=== PATIENT | female | born 1930 | race Caucasian/White ===

== ENCOUNTER → 2016-06-19 | Outpatient (CLI) | payer OTHER ==
[2016-06-19 17:28] LABS: BASOPHILS # (AUTO) 0.08 10*3/UL; BASOPHILS % (AUTO) 0.9 % (0-1); HEMATOCRIT 41.5 % (37.0-47.0); HEMOGLOBIN 13.5 g/dL (12.0-16.0); IMM GRAN % (AUTO) 0.3 % (0-5); IMM GRAN# (AUTO) 0.03 10*3/UL; LYMPHOCYTES # (AUTO) 2.08 10*3/uL; LYMPHOCYTES % (AUTO) 22.3 % (10-50); MEAN CORPUSCULAR HEMOGLOBIN 31.3 PG (27-31); MEAN CORPUSCULAR HGB CONC 32.5 g/dL (33-37); MONOCYTES # (AUTO) 0.83 10*3/UL (0.3-0.8); MONOCYTES % (AUTO) 8.9 % (5-15); NEUTROPHILS # (AUTO) 6.03 10*3/UL; NEUTROPHILS % (AUTO) 64.6 % (50-80); RDW COEFFICIENT OF VARIATION 14.8 % (11.5-14.5); RED BLOOD COUNT 4.31 10^6/uL (4.20-5.40); WHITE BLOOD COUNT 9.33 10^3/uL (4.8-10.8)
[2016-06-19 17:37] LABS: PLATELET MORPHOLOGY COMMENT NORMAL MORPHOLOGY (NORM)
[2016-06-19 17:41] LABS: BLOOD UREA NITROGEN 27 mg/dL (7-22); BUN/CREATININE RATIO 20.76 (6-20); CALCIUM 10.3 mg/dL (8.7-10.7); CHLORIDE 108 meq/L (98-112); CREATININE 1.3 mg/dL (0.50-1.20); GLUCOSE 102 mg/dL (78-110); POTASSIUM 5.5 meq/L (3.8-5.2); SODIUM 144 meq/L (135-145)
[2016-06-19 17:43] LABS: HEMOGLOBIN A1C 6.29 % (4.2-6.0); MEAN BLOOD GLUCOSE (CALC) 123.457 mg/dL
[2016-06-19 20:20] LABS: FREE T4 (FREE THYROXINE) 0.87 ng/dL (0.93-1.71)
== END ==
LOC: MOB LAB 16:22
DX: E11.9 Type 2 diabetes mellitus without complications (principal); I10 Essential (primary) hypertension; E55.9 Vitamin D deficiency, unspecified; E03.9 Hypothyroidism, unspecified; L30.8 Other specified dermatitis
CPT/HCPCS: 36415; 80048; 82306; 83036; 84439; 84443; 85025

== ENCOUNTER → 2016-10-16 | Outpatient (CLI) | payer OTHER ==
--- NOTE | 2016-10-16 16:06 | EKG ---
[address] [address] Measurements Intervals [place] Rate: 63 P: 70 ME: 142 QRS: 17 QRSD: 96 T: 69 QT: 395 QTc: 403 Interpretive Statements SINUS RHYTHM WITH SINUS ARRHYTHMIA NONSPECIFIC ST & T-WAVE ABNORMALITY Compared to ECG 08/29/2012 09:16:59 T-wave abnormality still present Electronically Signed On 10-16-16 16:59:52 MDT by Krishna Griffith [email or web address]
[2016-10-16 16:35] LABS: BASOPHILS # (AUTO) 0.05 10*3/UL; BASOPHILS % (AUTO) 0.6 % (0-1); EOSINOPHILS # (AUTO) 0.33 10*3/UL; EOSINOPHILS % (AUTO) 3.8 % (0-8); HEMOGLOBIN 12.1 g/dL (12.0-16.0); MEAN CORPUSCULAR HEMOGLOBIN 30.1 PG (27-31); MEAN CORPUSCULAR HGB CONC 31.8 g/dL (33-37); MEAN CORPUSCULAR VOLUME 94.5 FL (81-99); MEAN PLATELET VOLUME 10.7 FL (7.4-12.2); MONOCYTES # (AUTO) 0.87 10*3/UL (0.3-0.8); MONOCYTES % (AUTO) 9.9 % (5-15); NEUTROPHILS % (AUTO) 66.9 % (50-80); RED BLOOD COUNT 4.02 10^6/uL (4.20-5.40)
[2016-10-16 16:41] LABS: PLATELET MORPHOLOGY COMMENT NORMAL MORPHOLOGY (NORM); RBC MORPHOLOGY COMMENT NORMAL MORPHOLOGY (NORM); WBC MORPHOLOGY COMMENT NORMAL MORPHOLOGY (NORM)
[2016-10-16 16:52] LABS: BLOOD UREA NITROGEN 33 mg/dL (7-22); BUN/CREATININE RATIO 23.57 (6-20); CALCIUM 9.6 mg/dL (8.7-10.7)
[2016-10-16 17:05] LABS: HEMOGLOBIN A1C 6.21 % (4.2-6.0)
== END ==
LOC: MOB LAB 15:48
DX: E11.9 Type 2 diabetes mellitus without complications (principal); E03.9 Hypothyroidism, unspecified; C44.719 Basal cell carcinoma of skin of left lower limb, including hip; E78.5 Hyperlipidemia, unspecified; I10 Essential (primary) hypertension; H91.90 Unspecified hearing loss, unspecified ear; L98.8 Other specified disorders of the skin and subcutaneous tissue
CPT/HCPCS: 36415; 80048; 83036; 84443; 85025; 93005; 93010

== ENCOUNTER 2016-10-24 08:56 | Day surgery (SDC) | payer OTHER ==
[~2016-10-24 08:56] MED LIST: Clindamycin 900mg (Premix) 50 ML IV ONE; LIDOCAINE W/ SODIUM BICARB 0.5 ML SYR ONE; Lactated Ringers 1,000 ML PRIMARY IV ONE
[2016-10-24] MEDS ORDERED: Sodium Chloride 0.9% vial 10 ML ONE (09:16)
[2016-10-24] MEDS ORDERED: MIDAZOLAM 5 MG/1 ML ONE (09:16)
[2016-10-24] MEDS ORDERED: DEXAMETHASONE SOD PHOSPHATE 4 MG/1 ML VIAL ONE (11:34)
[2016-10-24] MEDS ORDERED: BUPivacaine Inj 0.5% PF (5mg/ml) 10ml vial ONE (11:34)
[2016-10-24] MEDS ORDERED: Lidocaine Inj 1% 20 ML ONE (11:34)
[2016-10-24] MEDS ORDERED: HYDROcodone-APAP 5 MG -325 MG TABLET PO PRN (12:27)
[2016-10-24] MEDS ORDERED: NORMAL SALINE 10 ML SYRINGE FLUSH IVP PRN (12:27)
--- NOTE | 2016-10-24 12:46 | GEN.OPNOTE ---
Operative Report Surgeon: Dewayne Shearer DPM Anesthesia Type: Local, MAC Anesthesia Provider: Radha Reynoso CRNA Surgery Date: 10/24/16 Preoperative Diagnosis: 1. Left foot skin lesion, possible squamous cell. L98.9 Postoperative Diagnosis: 1. Left foot skin lesion, possible squamous cell. L98.9 Procedure: 1. Excision of abnormal skin lesion, 5.2 X 2.2 cm area. 2. Skin flap for closure. Estimated Blood Loss (mL): 0 Fluids: 900 mg clindamycin preoperatively. 400 mL's lactated Ringer's. Indications for the Procedure: Chronic skin lesion, which has not responded to conservative measures over the past year. Possible squamous cell or basal cell type carcinoma. Description of Procedure: The patient was brought to the operating room and placed in the supine position. MAC was continued. The foot was prepped and draped in the usual sterile fashion. A timeout was performed. A local block was administered to the left dorsal foot proximally. The foot was then exsanguinated with an elastic Esmarch, after which a pneumatic cuff was inflated about the ankle to 250 mmHg pressure. The area gained for excision of the skin lesion with a minimum of 4 mm margins on either side, was 5.2 cm in length and 2.2 cm in width. The skin incision was carried deep to subcutaneous tissues. The lesion was undermined to the subcutaneous tissues and did not show any involvement deep on a general inspection. Lesion was submitted to pathology. Next the soreness skin was undermined maintained neurovascular structures, but deeper to the subcutaneous tissues to allow skin flap to cover the deficit. Once the skin was rotated into position to vertical mattress sutures were used to hold in place, with horizontal mattress sutures along the remainder of the incision. The wound was covered with Mastisol and Steri-Strips for reinforcement. And covered with Xeroform, fluffs, Kerlix and a Coban dressing. The pneumatic cuff was released from the left ankle after 20 minutes total time. Capillary return was noted to all toes, and the patient was returned to recovery.
[2016-10-24 13:44] VITALS: RESP 14
[2016-10-24 14:17] VITALS: TEMP 98.1
== END 2016-10-24 14:10 | disposition home or self-care (01) ==
LOC: SDSC 08:56
PROVIDERS: ATTEND Podiatrist Foot & Ankle Surgery
DX: D04.72 Carcinoma in situ of skin of left lower limb, including hip (principal); E11.9 Type 2 diabetes mellitus without complications
CPT/HCPCS: 11626; 88305; A4216; J2704; J1100; J2250; J3490; J7120

== ENCOUNTER → 2016-10-30 | Outpatient (CLI) | payer OTHER | LOC: MMPC 10:00 | PROVIDERS: ATTEND Podiatrist Foot & Ankle Surgery | DX: L30.8 Other specified dermatitis (principal) | CPT/HCPCS: 99212; G0463 ==

== ENCOUNTER → 2016-11-13 | Outpatient (CLI) | payer OTHER | LOC: MMPC 10:00 | PROVIDERS: ATTEND Podiatrist Foot & Ankle Surgery | DX: L60.3 Nail dystrophy (principal); E11.9 Type 2 diabetes mellitus without complications; L30.8 Other specified dermatitis; Z48.02 Encounter for removal of sutures ==